=== PATIENT | female | born 1950 | race Caucasian/White ===

== ENCOUNTER 2017-07-16 17:03 | Inpatient (IN) | payer MEDICARE, MEDICAID ==
[~2017-07-16] VITALS: Ht 160 cm; Wt 63.0 kg
[2017-07-16] MEDS ORDERED: LISI-661 PO (18:06)
[2017-07-16] MEDS ORDERED: ZOLPIDEM TARTRATE 10 MG TABLET PO PRN (19:15)
[2017-07-16] MEDS ORDERED: LORazepam 2 MG TABLET PO PRN (19:15)
[2017-07-16] MEDS ORDERED: HALOPERIDOL 5 MG TABLET PO PRN (19:15)
[2017-07-16 19:19] LABS: BASOPHILS % (AUTO) 0.5 % (0.0-2.0); EOSINOPHILS % (AUTO) 2.1 % (1.0-6.0); HEMATOCRIT 36.9 % (36-46); HEMOGLOBIN 12.4 g/dL (12.0-16.0); LYMPHOCYTES # (AUTO) 2.9 K/uL (1.0-4.8); LYMPHOCYTES % (AUTO) 41.8 % (22.0-44.0); MEAN CORPUSCULAR HGB CONC 33.6 G/dL (31.0-37.0); MEAN CORPUSCULAR VOLUME 83 fL (80-100); MONOCYTES # (AUTO) 0.6 K/uL (0.1-1.0); NEUTROPHILS # (AUTO) 3.3 K/uL (1.8-7.7); NEUTROPHILS % (AUTO) 47.6 % (40.0-70.0); PLATELET COUNT (AUTO) 282 K/uL (150-450); RED BLOOD CELL COUNT(AUTO) 4.43 MIL/uL (4.00-5.20); RED CELL DISTRIBUTION WIDTH 14.2 % (11.5-14.5)
[2017-07-16 19:25] LABS: AMPHET/METH SCREEN,URINE NEGATIVE (NEGATIVE); BARBITURATE SCREEN, URINE NEGATIVE (NEGATIVE); BENZODIAZEPINES SCREEN,URINE NEGATIVE (NEGATIVE); CANNABINOID SCREEN,URINE NEGATIVE (NEGATIVE); COCAINE SCREEN,URINE NEGATIVE (NEGATIVE); METHADONE SCREEN, URINE NEGATIVE (NEGATIVE); OPIATE SCREEN,URINE NEGATIVE (NEGATIVE)
[2017-07-16 19:27] LABS: PHENCYCLIDINE SCREEN,URINE NEGATIVE (NEGATIVE)
[2017-07-16 19:33] LABS: ANION GAP 7 mmol/L (8-16); CALCIUM, TOTAL 8.9 mg/dL (8.8-10.5); CARBON DIOXIDE 26 mmol/L (22-29); CHLORIDE 104 mmol/L (98-107); CREATININE 0.61 mg/dL (0.60-1.30); GLOMERULAR FILTR. RATE CALC > 60 mL/min (>60); GLUCOSE,RANDOM 104 mg/dL (70-110); POTASSIUM 3.8 mmol/L (3.5-5.1); SODIUM SERUM 137 mmol/L (136-145); UREA NITROGEN, BLOOD 12 mg/dL (7-18)
[2017-07-16 19:39] LABS: ALANINE AMINOTRANSFERASE 47 U/L (12-78); ALBUMIN 3.5 g/dL (3.4-5.0); ALKALINE PHOSPHATASE 104 U/L (46-116); ASPARTATE AMINOTRANSFERASE 32 U/L (15-37); BILIRUBIN,TOTAL 0.3 mg/dL (0.1-1.0); TOTAL PROTEIN, SERUM 7.6 g/dL (6.4-8.2)
[2017-07-16 20:45] LABS: HDL CHOLESTEROL 52 mg/dL (40-60); TRIGLYCERIDES 96 mg/dL (15-150)
[2017-07-16 21:15] LABS: CHOL/HDL RATIO 2.5 (3.9-5.7); CHOLESTEROL 128 mg/dL (131-200); LDL CHOL (CALC.) 57 mg/dL (0-130)
[2017-07-16 21:29] VITALS: BP 133/85
[2017-07-17] MEDS: LISINOPRIL 10 MG TABLET PO SCH ×2 (08:15→16:43)
[2017-07-17 09:00] VITALS: BP 137/86
[2017-07-17] MEDS: ESCITALOPRAM OXALATE 10 MG TABLET PO SCH (12:42)
[2017-07-17] MEDS ORDERED: IBUPROFEN 400 MG TABLET PO PRN (12:45)
[2017-07-17 17:00] VITALS: BP 131/76
[2017-07-17] MEDS: GuaiFENesin/D-METHORPHAN [SUGAR-FREE] 200-20MG/10 ML SYRUP UDCUP PO PRN (21:00)
[2017-07-17 23:38] VITALS: BP 148/96
[2017-07-17] MEDS: ACETAMINOPHEN 325 MG TABLET PO PRN (23:38)
[2017-07-18] MEDS: GuaiFENesin/D-METHORPHAN [SUGAR-FREE] 200-20MG/10 ML SYRUP UDCUP PO PRN (06:32)
[2017-07-18 08:13] LABS: HEMOGLOBIN A1C 6.6 % (4.5-6.2)
[2017-07-18] MEDS: LISINOPRIL 10 MG TABLET PO SCH ×2 (08:15→16:32)
[2017-07-18] MEDS: ESCITALOPRAM OXALATE 10 MG TABLET PO SCH (08:15)
[2017-07-18 08:28] LABS: CHOL/HDL RATIO 2.7 (3.9-5.7); THYROID STIMULATING HORMONE 1.06 uIU/mL (0.36-3.74)
[2017-07-18 09:22] VITALS: BP 105/60
[2017-07-18 12:35] VITALS: BP 123/79
[2017-07-18] MEDS: ACETAMINOPHEN 325 MG TABLET PO PRN (12:40)
[2017-07-18 13:45] VITALS: BP 132/78
[2017-07-18 17:10] VITALS: BP 123/78
[2017-07-19 06:40] VITALS: BP 125/65
[2017-07-19 08:00] VITALS: BP 135/65
[2017-07-19] MEDS: ESCITALOPRAM OXALATE 10 MG TABLET PO SCH (08:14)
[2017-07-19] MEDS: LISINOPRIL 10 MG TABLET PO SCH ×2 (08:14→16:48)
[2017-07-19] MEDS: GuaiFENesin/D-METHORPHAN [SUGAR-FREE] 200-20MG/10 ML SYRUP UDCUP PO PRN (08:20)
[2017-07-19 16:24] VITALS: BP 124/69
[2017-07-19] MEDS: ACETAMINOPHEN 325 MG TABLET PO PRN (16:50)
[2017-07-19 16:53] VITALS: BP 114/68
[2017-07-20] MEDS: ESCITALOPRAM OXALATE 10 MG TABLET PO SCH (08:37)
[2017-07-20] MEDS: LISINOPRIL 10 MG TABLET PO SCH ×2 (08:38→16:48)
[2017-07-20 09:00] VITALS: BP 125/71
[2017-07-20 17:00] VITALS: BP 150/70
[2017-07-21 08:21] VITALS: BP 133/54
[2017-07-21] MEDS: LISINOPRIL 10 MG TABLET PO SCH ×2 (08:53→16:32)
[2017-07-21] MEDS: ESCITALOPRAM OXALATE 10 MG TABLET PO SCH (08:54)
[2017-07-21 18:04] VITALS: BP 126/76
[2017-07-21] MEDS: GuaiFENesin/D-METHORPHAN [SUGAR-FREE] 200-20MG/10 ML SYRUP UDCUP PO PRN (20:10)
[2017-07-22 01:02] VITALS: BP 128/78
[2017-07-22 08:12] VITALS: BP 121/72
[2017-07-22] MEDS: LISINOPRIL 10 MG TABLET PO SCH ×2 (08:29→16:48)
[2017-07-22] MEDS: ESCITALOPRAM OXALATE 10 MG TABLET PO SCH (08:30)
[2017-07-22 17:12] VITALS: BP 120/72
[2017-07-23 08:00] VITALS: BP 126/73
[2017-07-23] MEDS: LISINOPRIL 10 MG TABLET PO SCH ×2 (09:08→16:56)
[2017-07-23] MEDS: ESCITALOPRAM OXALATE 10 MG TABLET PO SCH (09:08)
[2017-07-23 16:15] VITALS: BP 107/64
[2017-07-24 08:00] VITALS: BP 123/82
[2017-07-24] MEDS: ESCITALOPRAM OXALATE 10 MG TABLET PO SCH (09:07)
[2017-07-24] MEDS: LISINOPRIL 10 MG TABLET PO SCH ×2 (09:07→16:55)
[2017-07-24] MEDS ORDERED: ESCITALOPRAM OXALATE 10 MG TABLET PO ONE (11:00)
[2017-07-24 16:53] VITALS: BP 147/79
[2017-07-25] MEDS: ESCITALOPRAM OXALATE 10 MG TABLET PO SCH (08:05)
[2017-07-25] MEDS: LISINOPRIL 10 MG TABLET PO SCH ×2 (08:05→17:00)
[2017-07-25 08:51] VITALS: BP 138/70
[2017-07-25 16:58] VITALS: BP 98/58
[2017-07-25] MEDS: ACETAMINOPHEN 325 MG TABLET PO PRN (16:58)
[2017-07-25 17:58] VITALS: BP 123/73
[2017-07-26 08:31] VITALS: BP 131/84
[2017-07-26] MEDS: LISINOPRIL 10 MG TABLET PO SCH ×2 (09:12→16:33)
[2017-07-26] MEDS: ESCITALOPRAM OXALATE 10 MG TABLET PO SCH (09:12)
[2017-07-26] MEDS ORDERED: ESCI10TA PO (11:14)
[2017-07-26 16:49] VITALS: BP 144/78
[2017-07-26 22:35] VITALS: BP 139/68
[2017-07-26] MEDS: ACETAMINOPHEN 325 MG TABLET PO PRN (22:35)
[2017-07-27 05:57] VITALS: BP 134/84
== END 2017-07-27 07:05 | disposition home or self-care (01) | DRG 885 ==
LOC: EMS 17:05 → 3EX 19:30
DX: F33.3 Major depressive disorder, recurrent, severe with psychotic symptoms (principal); R45.851 Suicidal ideations; G47.00 Insomnia, unspecified; I10 Essential (primary) hypertension; Z59.0 Homelessness; Z79.899 Other long term (current) drug therapy; Z90.710 Acquired absence of both cervix and uterus
CPT/HCPCS: 83036; 84443; 99285; G0480